=== PATIENT | female | born 1995 | race Caucasian/White ===

== ENCOUNTER 2017-09-29 13:23 | Emergency (ER) | payer MEDICAID, OTHER ==
[~2017-09-29] VITALS: Ht 157.5 cm; Wt 49.9 kg
[2017-09-29 13:27] VITALS: BP 127/70
--- NOTE | 2017-09-29 17:32 | NUR ---
CALLED AT THE [facility]OB[facility] TWICE NO ANSWER; [facility]ART
== END 2017-09-29 17:32 | disposition left against medical advice (07) ==
LOC: MED 13:23
DX: R51 Headache (principal); Z53.21 Procedure and treatment not carried out due to patient leaving prior to being seen by health care provider